=== PATIENT | male | born 1940 | race Hispanic/Latino ===

== ENCOUNTER → 2016-07-17 | Outpatient (CLI) | payer MEDICARE, OTHER | END | disposition home or self-care (01) | LOC: YCFC.O 08:47 | PROVIDERS: ATTEND Nurse Practitioner Family | DX: E11.9 Type 2 diabetes mellitus without complications (principal) ==

== ENCOUNTER 2016-08-13 15:52 | Emergency (ER) | payer MEDICARE, OTHER ==
[2016-08-13] MEDS ORDERED: IPRATROPIUM/ALBUTEROL 3 ML VIAL NEB ONE (15:56)
[2016-08-13 16:17] VITALS: TEMP 97.9
--- NOTE | 2016-08-13 16:21 | RAD ---
EXAM DESCRIPTION: Chest,1 View CLINICAL HISTORY: dyspnea COMPARISON: 14 April 2015 TECHNIQUE: AP portable chest FINDINGS: Cardiomegaly is evident. Pulmonary vascular congestion is noted. Interstitial edema is observed. Bilateral pleural effusions are observed. IMPRESSION: Findings of congestive heart failure observed. The chest is worsened from the prior exam. Electronically signed by: Anant Lewis MD 08/13/2016 4:20 PM CDT
[2016-08-13] MEDS ORDERED: NITROGLYCERIN 0.4 MG 25 EA TAB SL ONE (16:22)
--- NOTE | 2016-08-13 16:22 | ED.PDOC ---
History of Present Illness - General Chief Complaint: Respiratory Problem Stated Complaint: shortness of breath,chest pressure Time Seen by Provider: 08/13/16 15:56 Source: patient, family Exam Limitations: language barrier - History of Present Illness Initial Comments: Patient is a 76 yo M with ESRD on dialysis, last dialysis this morning, IDDM, HTN who presents with dyspnea and chest pain for two hours. Sudden onset, Pain is mid-sternal and without radiation. Pressure-like in nature. No previous episodes. No exacerbating nor alleviating factors. Denies previous episodes or cardiac history. Does not use tobacco. Has hyperlipidemia. Timing/Duration: 1-3 hours Severity: moderate Improving Factors: nothing Worsening Factors: nothing Associated Symptoms: chest pain Allergies/Adverse Reactions: Allergies NO KNOWN ALLERGY Allergy (Verified 05/10/12 08:29) pt states Home Medications: Ambulatory Orders Insulin Detemir [Levemir] 20 units SUBCU .EVENING 06/27/15 Lovastatin 20 mg PO BEDTIME 06/27/15 Sevelamer Carbonate [Renvela] 800 mg PO TID 06/27/15 Valsartan 80 mg PO DAILY 06/27/15 amLODIPine BESYLATE [Norvasc] 10 mg PO DAILY 06/27/15 Ergocalciferol [Drisdol] 50,000 unit PO WKLY 08/13/16 Review of Systems - Review of Systems Constitutional: States: no symptoms reported EENTM: States: no symptoms reported Respiratory: States: see HPI Cardiology: States: see HPI Gastrointestinal/Abdominal: States: no symptoms reported Genitourinary: States: no symptoms reported Musculoskeletal: States: no symptoms reported Skin: States: no symptoms reported Neurological: States: no symptoms reported Endocrine: States: no symptoms reported Hematologic/Lymphatic: States: no symptoms reported Past Medical History (General) - Patient Medical History Hx Hypertension: Yes Hx Diabetes: Yes Hx Renal Disease: Yes - Dialysis - Vaccination History Hx Influenza Vaccination: Yes Hx Pneumococcal Vaccination: Yes - Social History Hx Tobacco Use: Yes Family Medical History - Family History Mother Family History: No Known Physical Exam - Physical Exam General Appearance: Alert Eye Exam: bilateral normal Ears, Nose, Throat: normal ENT inspection Neck: non-tender, full range of motion, supple Respiratory: lungs clear Cardiovascular/Chest: normal peripheral pulses, regular rate, rhythm Gastrointestinal/Abdominal: normal bowel sounds, non tender, soft Back Exam: normal inspection, no CVA tenderness Extremity: normal range of motion, non-tender, normal inspection Neurologic: no motor/sensory deficits Skin Exam: normal color Lymphatic: no adenopathy Progress - Progress Progress: 08/13/16 16:23 Duonebs x one. ASA 324 mg po x one. Nitrostat tab. Oxygen by NC. 08/13/16 16:44 Pro-BNP >5000 EKG read by me showed NSR with no significant ST changes, T wave inversions, nor LBBB. Nitroglycerin drip started and titrated to keep systolic less than 160. CXR showed findings of increasing CHF. Patient was transferred to [facility]. Laboratory Tests 08/13/16 08/13/16 08/13/16 16:12 16:12 16:12 WBC 4.7 L RBC 3.54 L Hgb 11.1 L Hct 32.7 L MCV 92.3 MCH 31.3 H MCHC 34.1 RDW 17.0 H Plt Count 148 MPV 9.3 Absolute Neuts (auto) 3.40 Absolute Lymphs (auto) 0.70 L Absolute Monos (auto) 0.40 Absolute Eos (auto) 0.10 Absolute Basos (auto) 0.10 Neutrophils % 72.7 Lymphocytes % 15.6 L Monocytes % 7.8 Eosinophils % 2.8 Basophils % 1.1 PT 11.7 INR 1.040 PTT (SP) 38.2 H Sodium 143 Potassium 3.4 L Chloride 97 L Carbon Dioxide 35 H Anion Gap 14.4 BUN 17 Creatinine 3.08 H BUN/Creatinine Ratio 5.5 L Random Glucose 133 H Serum Osmolality 288.4 Calcium 10.1 Total Bilirubin 0.9 AST 15 ALT 12 Alkaline Phosphatase 108 Creatine Kinase CK-MB (CK-2) CK-MB (CK-2) % Troponin I B-Natriuretic Peptide Serum Total Protein 8.5 H Albumin 4.5 Globulin 4.0 H Albumin/Globulin Ratio 1.1 08/13/16 16:12 WBC RBC Hgb Hct MCV MCH MCHC RDW Plt Count MPV Absolute Neuts (auto) Absolute Lymphs (auto) Absolute Monos (auto) Absolute Eos (auto) Absolute Basos (auto) Neutrophils % Lymphocytes % Monocytes % Eosinophils % Basophils % PT INR PTT (SP) Sodium Potassium Chloride Carbon Dioxide Anion Gap BUN Creatinine BUN/Creatinine Ratio Random Glucose Serum Osmolality Calcium Total Bilirubin AST ALT Alkaline Phosphatase Creatine Kinase 65 CK-MB (CK-2) 1.1 CK-MB (CK-2) % Not Reportable Troponin I 0.06 H B-Natriuretic Peptide > 5000.0 H* Serum Total Protein Albumin Globulin Albumin/Globulin Ratio 08/13/16 16:47 Departure - Departure Clinical Impression: CHF (congestive heart failure), NYHA class IV Disposition: Transfer to Hospital Condition: Fair Departure Forms: ED Discharge - Pt. Copy, Patient Portal Self Enrollment Diet: other - as per hospitalist Activity: increase activity as tolerated Referrals: aHnsa Wills NP [Primary Care Provider] - 1-2 Weeks Home Medications: Ambulatory Orders Insulin Detemir [Levemir] 20 units SUBCU .EVENING 06/27/15 Lovastatin 20 mg PO BEDTIME 06/27/15 Sevelamer Carbonate [Renvela] 800 mg PO TID 06/27/15 Valsartan 80 mg PO DAILY 06/27/15 amLODIPine BESYLATE [Norvasc] 10 mg PO DAILY 06/27/15 Ergocalciferol [Drisdol] 50,000 unit PO WKLY 08/13/16
[2016-08-13] MEDS ORDERED: ASPIRIN (CHEWABLE) 81 MG TAB PO ONE (16:24)
[2016-08-13] MEDS ORDERED: ASPIRIN TABLET 325 MG TAB PO ONE (16:24)
[2016-08-13] MEDS ORDERED: NITROGLYCERIN/D5W IV 50,000 MCG in PREMIX BOTTLE 1 BOTTLE IVS SCH (16:30)
[2016-08-13] MEDS ORDERED: NITROGLYCERIN/D5W IV 250 ML IVS ONE (16:32)
[2016-08-13 17:15] VITALS: BP 157/84; O2SAT 91
== END 2016-08-13 17:19 | disposition short-term general hospital (02) ==
LOC: ER 15:52
DX: I13.2 Hypertensive heart and chronic kidney disease with heart failure and with stage 5 chronic kidney disease, or end stage renal disease (principal); I50.9 Heart failure, unspecified; N18.6 End stage renal disease; Z99.2 Dependence on renal dialysis; E11.9 Type 2 diabetes mellitus without complications; E78.5 Hyperlipidemia, unspecified; Z87.891 Personal history of nicotine dependence; Z79.4 Long term (current) use of insulin; Z79.899 Other long term (current) drug therapy
CPT/HCPCS: 36415; 36600; 71010; 80053; 82550; 82553; 82803; 82805; 83880; 84484; 85025; 85610; 85730; 93005; 94640; J7620

== ENCOUNTER → 2016-09-15 | Outpatient (CLI) | payer MEDICARE, MEDICAID ==
--- NOTE | 2016-09-16 04:55 | RAD ---
Procedure: XR CHEST 2 VIEWS Exam Date: 09/15/2016 Ordering Provider: Hansa Wills Clinical Indication: COUGH Comparison: 08/13/2016 Findings: Cardiac silhouette: Enlarged Pulmonary vasculature : Normal Mediastinal contour: Normal Aortic contour: Normal Focal lung consolidation: Left basilar atelectasis and/or infiltrate. Pleural effusion: None Pneumothorax: None Acute bony or soft tissue abnormality: None Impression: 1. Left basilar atelectasis and/or infiltrate. 2. Cardiomegaly. Electronically signed by: Ramos Rodas MD 09/16/2016 4:54 AM CDT
== END | disposition home or self-care (01) ==
LOC: YCFC.O 15:54
PROVIDERS: ATTEND Nurse Practitioner Family
DX: R05 Cough (principal)

== ENCOUNTER → 2016-10-07 | Outpatient (CLI) | payer MEDICARE, MEDICAID ==
--- NOTE | 2016-10-07 15:16 | RAD ---
EXAM DESCRIPTION: Chest,2 Views CLINICAL HISTORY: PNEUMONIA shortness of breath COMPARISON: September 15, 2016 FINDINGS: Two-view chest x-ray shows enlargement of the cardiac silhouette without pulmonary vascular congestion. Mild tortuosity the thoracic aorta is seen. Lungs are mildly hyperinflated. The interstitial thickening and infiltrate in the left lower lobe seen on previous exam is mostly resolved. There may be some residual mild interstitial thickening seen. Mild blunting of the posterior costophrenic angle on the left is seen but improved from previous. Right lung is clear. Moderate disc degenerative changes of the spine are seen. IMPRESSION: Interval significant improvement of the left lower lobe infiltrate seen on previous exam. There remains some residual mild interstitial thickening. Small left pleural effusion improved from previous. Electronically signed by: Chris Jiang MD 10/07/2016 3:15 PM CDT
== END | disposition home or self-care (01) ==
LOC: YCFC.O 09:09
PROVIDERS: ATTEND Nurse Practitioner Family
DX: J18.9 Pneumonia, unspecified organism (principal)

== ENCOUNTER → 2017-01-04 | Outpatient (CLI) | payer MEDICARE, OTHER | END | disposition home or self-care (01) | LOC: YCFC.O 09:07 | PROVIDERS: ATTEND Nurse Practitioner Family | DX: E78.2 Mixed hyperlipidemia (principal); E11.22 Type 2 diabetes mellitus with diabetic chronic kidney disease; I10 Essential (primary) hypertension; D63.1 Anemia in chronic kidney disease ==

== ENCOUNTER 2017-08-01 11:01 | Emergency (ER) | payer MEDICARE, MEDICAID ==
--- NOTE | 2017-08-01 11:59 | RAD ---
EXAM DESCRIPTION: Chest,2 Views CLINICAL HISTORY: 77 years Male, confusion COMPARISON: 04/04/2017 IMPRESSION: The heart is enlarged, with borderline central pulmonary vascular congestion. The thoracic aorta is moderately calcified and tortuous. Coarsened bilateral interstitial markings are again demonstrated, with slightly increased bibasilar patchy interstitial and airspace opacities. The findings are concerning for CHF or pneumonia superimposed on chronic interstitial changes. Suspected small left pleural effusion. No pneumothorax. Advanced multilevel thoracic spondylosis. No acute osseous abnormality. Electronically signed by: Jose Shelton MD 08/01/2017 11:57 AM CDT
[2017-08-01] MEDS: IBUPROFEN 200 MG TAB PO ONE (12:28)
--- NOTE | 2017-08-01 12:42 | CT ---
EXAM DESCRIPTION: Head CLINICAL HISTORY: Confusion. Altered mental status. COMPARISON: 06/27/2015 TECHNIQUE: Multiple axial images of the head without contrast. Multiplanar reformatted images. This exam was performed according to our departmental dose-optimization program, which includes automated exposure control, adjustment of the mA and/or kV according to patient size and/or use of iterative reconstruction technique. FINDINGS: There is no CT evidence of intracranial hemorrhage, mass effect, or large territory infarction. Severe confluent supratentorial white matter hypodensities. Moderate generalized volume loss. There are no abnormal extra-axial fluid collections. Calcific plaque in the visualized arteries. There is no acute calvarial defect. The visualized paranasal sinuses and the mastoids are clear. IMPRESSION: 1. No CT evidence of an acute intracranial abnormality. If there is concern for an acute or subacute infarct, consider follow-up MRI. 2. Advanced senescent changes. Electronically signed by: Jose Shelton MD 08/01/2017 12:40 PM CDT
--- NOTE | 2017-08-01 13:43 | ED.PDOC ---
History of Present Illness - General Chief Complaint: Neuro Symptoms/Deficits Stated Complaint: Confusion, fever Time Seen by Provider: 08/01/17 11:19 Source: patient Exam Limitations: no limitations - History of Present Illness Initial Comments: the patient is a 77-year-old male presenting to the emergency room originally with his daughter after he finished his dialysis. He was brought up here secondary to mild confusion for the last 48 hours or so. Family does not know of any definite fevers. He has not been complaining of anything. He has been having some mildly poor attention and occasionally has been getting a little bit confused. He has had a couple of small strokes in the past. He is not having any difficulty moving anything. He is not having any difficulty with speech or swallowing. There is no significant facial droop. He is alert and pleasant but does become easily confused. There does appear to be a history of maybe mild dementia before this. No recent medication changes according to family. He is oxygenating well without supplemental oxygen. He does not appear to be in any distress. He is resting comfortably. He does have alow-grade temperature elevation here of 100.1 today. He does also have mild audible rales in the left mid to lower lung field. No evidence of any sore throat or runny nose. No headache. No nuchal rigidity. No open sores that I can find. No difficulties with bowel movements or urination. No abdominal pain. He does not appear to be in any distress. His attention span is poor. Timing/Duration: 24 hours Severity: moderate Improving Factors: nothing Worsening Factors: nothing Allergies/Adverse Reactions: Allergies NO KNOWN ALLERGY Allergy (Verified 05/10/12 08:29) pt states Home Medications: Ambulatory Orders Insulin Detemir [Levemir] 20 units SUBCU .EVENING 06/27/15 Lovastatin 20 mg PO BEDTIME 06/27/15 Sevelamer Carbonate [Renvela] 800 mg PO TID 06/27/15 Valsartan 80 mg PO DAILY 06/27/15 amLODIPine BESYLATE [Norvasc] 10 mg PO DAILY 06/27/15 Ergocalciferol [Drisdol] 50,000 unit PO WKLY 08/13/16 Amoxicillin & Pot Clavulanate [Augmentin Tab] 500 mg PO DAILY #7 tablet Review of Systems - Review of Systems Constitutional: States: malaise EENTM: States: no symptoms reported Respiratory: States: cough - mild Cardiology: States: no symptoms reported Gastrointestinal/Abdominal: States: no symptoms reported Genitourinary: States: no symptoms reported Musculoskeletal: States: no symptoms reported Skin: States: no symptoms reported Neurological: States: other - mild confusion Endocrine: States: no symptoms reported All other Systems: No Change from Baseline Past Medical History (General) - Patient Medical History Hx Stroke: Yes - Hx TIA Hx Cardiac Disorders: Yes Hx Congestive Heart Failure: No Hx Hypertension: Yes Hx Diabetes: Yes Hx Renal Disease: Yes - Dialysis patient - L AV fistula to L arm; Fluid restriction - Vaccination History Hx Influenza Vaccination: No Hx Pneumococcal Vaccination: No - Social History Hx Tobacco Use: No - Triage Comment ED Triage Comment: Left AV fistula - palpable thrill noted. Family Medical History - Family History Mother Family History: No Known Living Status: Physical Exam - Physical Exam General Appearance: Alert, Comfortable, No apparent distress Eye Exam: bilateral normal - poor focus. He does have some decreased vision malleoli on his right eye from known macular degeneration Ears, Nose, Throat: hearing grossly normal - for him, normal pharynx Neck: full range of motion, supple Respiratory: no respiratory distress, no accessory muscle use, rales - left mid lung Cardiovascular/Chest: normal peripheral pulses, regular rate, rhythm, no edema Peripheral Pulses: radial,right: 2+, radial,left: 2+ - the patient's dialysis fistulas present on the left Gastrointestinal/Abdominal: non tender, soft Rectal Exam: deferred Back Exam: normal inspection, no CVA tenderness, no vertebral tenderness Extremity: normal range of motion, non-tender, normal inspection, no pedal edema , normal capillary refill Neurologic: otolaryngologist II-XII nml as tested - poor focus, alert, normal mood/affect, oriented x 3 - the patient recognizes his family and knows he is at the hospital. He knows he's been having some mild confusion. He gets the year right but is off on the date by 3 days. DTR: 2+: Patellar, left, Patellar, right Skin Exam: normal color Comments: Vital Signs - 24 hr 08/01/17 08/01/17 11:05 13:03 Temperature 98.8 F Pulse Rate [ 77 71 Left Radial] Respiratory 20 18 Rate Blood Pressure 168/87 183/78 [Left Arm] O2 Sat by Pulse 100 95 Oximetry Progress - Progress Progress: 08/01/17 13:47 the patient's a 77-year-old male that is a long-term dialysis patient presenting secondary to mild confusion for the last couple of days and really no other symptoms. Workup including blood work and urinalysis along with chest x-ray really only turned up a mild pneumonia. CT scan of the head showed no definitive new changes. It is possible he may have had a small stroke a couple of days ago giving him some confusion, however this has not shown up conclusively on the CT scan. he can continue his aspirin. For now the patient will be treated with Augmentin daily for the next 7 days for the pneumonia. Tylenol can be used to control any low-grade fever. His maximum temperature here was just above 100 and he is not requiring any supplemental oxygen. He needs to be kept adequately hydrated and he does need to keep his scheduled dialysis appointment. He needs to follow-up with his primary care doctor after his dialysis on Tuesday for reevaluation. He does have some elevation of his troponin and BNP on his lab work, however this is a chronic finding looking back at his previous workups. No cardiac symptoms are present currently. - Results/Orders Results/Orders: chest x-ray shows interstitial infiltrates consistent with pneumonia. EKG shows normal sinus rhythm at a rate of 69 bpm. Mildly prolonged QT interval. No acute ST segment changes concerning for immediate ischemia. He does have criteria for LVH and left atrial dilation. Laboratory Results - last 24 hr 08/01/17 08/01/17 08/01/17 11:29 11:29 11:30 WBC 6.8 RBC 3.17 L Hgb 10.6 L Hct 30.5 L MCV 96.3 H MCH 33.4 H MCHC 34.7 RDW 17.8 H Plt Count 137 MPV 9.5 Absolute Neuts (auto) 5.50 Absolute Lymphs (auto) 0.40 L Absolute Monos (auto) 0.80 Absolute Eos (auto) 0.10 Absolute Basos (auto) 0.00 Neutrophils % 81.3 H Lymphocytes % 6.1 L Monocytes % 11.2 H Eosinophils % 1.1 Basophils % 0.3 PT 12.2 INR 1.050 PTT (SP) 39.4 H Sodium Potassium Chloride Carbon Dioxide Anion Gap BUN Creatinine BUN/Creatinine Ratio Random Glucose Serum Osmolality Calcium Phosphorus 2.0 L Magnesium Total Bilirubin AST ALT Alkaline Phosphatase Creatine Kinase CK-MB (CK-2) CK-MB (CK-2) % Troponin I B-Natriuretic Peptide Serum Total Protein Albumin Globulin Albumin/Globulin Ratio Total PSA Urine Color Urine Appearance Urine pH Ur Specific [place] Urine Protein Urine Glucose (UA) Urine Ketones Urine Blood Urine Nitrite Urine Bilirubin Urine Urobilinogen Ur Leukocyte Esterase Urine RBC Urine WBC Ur Epithelial Cells Urine Bacteria 08/01/17 08/01/17 08/01/17 11:30 12:12 13:00 WBC RBC Hgb Hct MCV MCH MCHC RDW Plt Count MPV Absolute Neuts (auto) Absolute Lymphs (auto) Absolute Monos (auto) Absolute Eos (auto) Absolute Basos (auto) Neutrophils % Lymphocytes % Monocytes % Eosinophils % Basophils % PT INR PTT (SP) Sodium 145 Potassium 3.3 L Chloride 98 L Carbon Dioxide 36 H Anion Gap 14.3 BUN 13 Creatinine 3.23 H BUN/Creatinine Ratio 4.0 L Random Glucose 102 Serum Osmolality 289.0 Calcium 9.4 Phosphorus Magnesium 2.1 Total Bilirubin 1.0 AST 15 ALT 12 Alkaline Phosphatase 103 Creatine Kinase 54 CK-MB (CK-2) 0.9 CK-MB (CK-2) % Not Reportable Troponin I 0.09 H* B-Natriuretic Peptide > 5000.0 H* Serum Total Protein 7.5 Albumin 3.7 Globulin 3.8 H Albumin/Globulin Ratio 1.0 L Total PSA 1.67 Urine Color Yellow Urine Appearance Clear Urine pH >= 9.0 H* Ur Specific [place] 1.015 Urine Protein >=300 H Urine Glucose (UA) 100 H Urine Ketones Negative Urine Blood Trace-intact H Urine Nitrite Negative Urine Bilirubin Negative Urine Urobilinogen 0.2 Ur Leukocyte Esterase Negative Urine RBC 0 Urine WBC 0-1 Ur Epithelial Cells 0-1 Urine Bacteria 0 Departure - Departure Clinical Impression: Pneumonia Qualifiers: Pneumonia type: due to unspecified organism Laterality: unspecified laterality Lung location: lower lobe of lung Qualified Code(s): J18.1 - Lobar pneumonia, unspecified organism Disposition: Discharge to Home or Self Care Condition: Fair Departure Forms: ED Discharge - Pt. Copy, Patient Portal Self Enrollment Instructions: Pneumonia-Adult Diet: diabetic diet Activity: increase activity as tolerated Referrals: Lorena Trevino NP [Primary Care Provider] - 1-2 Weeks Prescriptions: Amoxicillin & Pot Clavulanate [Augmentin Tab] 500 mg PO DAILY #7 tablet Home Medications: Ambulatory Orders Insulin Detemir [Levemir] 20 units SUBCU .EVENING 06/27/15 Lovastatin 20 mg PO BEDTIME 06/27/15 Sevelamer Carbonate [Renvela] 800 mg PO TID 06/27/15 Valsartan 80 mg PO DAILY 06/27/15 amLODIPine BESYLATE [Norvasc] 10 mg PO DAILY 06/27/15 Ergocalciferol [Drisdol] 50,000 unit PO WKLY 08/13/16 Amoxicillin & Pot Clavulanate [Augmentin Tab] 500 mg PO DAILY #7 tablet Additional Instructions: the patient's a 77-year-old male that is a long-term dialysis patient presenting secondary to mild confusion for the last couple of days and really no other symptoms. Workup including blood work and urinalysis along with chest x-ray really only turned up a mild pneumonia. CT scan of the head showed no definitive new changes. It is possible he may have had a small stroke a couple of days ago giving him some confusion, however this has not shown up conclusively on the CT scan. he can continue his aspirin. For now the patient will be treated with Augmentin daily for the next 7 days for the pneumonia. Tylenol can be used to control any low-grade fever. His maximum temperature here was just above 100 and he is not requiring any supplemental oxygen. He needs to be kept adequately hydrated and he does need to keep his scheduled dialysis appointment. He needs to follow-up with his primary care doctor after his dialysis on Tuesday for reevaluation. He does have some elevation of his troponin and BNP on his lab work, however this is a chronic finding looking back at his previous workups. No cardiac symptoms are present currently. blood sugars should also be followed fairly closely at home to make sure he is not developing any low blood sugars with the infection on board.
[2017-08-01] MEDS: POTASSIUM CHLORIDE ELIXIR 20 MEQ/15 ML UD PO ONE (14:29)
[2017-08-01] MEDS ORDERED: cefTRIAXone SODIUM 1 GM VIAL ONE (14:31)
[2017-08-01] MEDS ORDERED: SODIUM CHL 0.9% 50ML MIN-BAG+ 50 ML IVPB ONE (14:31)
[2017-08-01] MEDS: cefTRIAXone SODIUM 1 GM in SODIUM CHL 0.9% 50ML MIN-BAG+ 50 ML IVPB ONE (14:38)
[2017-08-01] MEDS: AMOXICILLIN & POT CLAVULANATE 500MG TAB PO ONE (15:20)
[2017-08-01 16:09] VITALS: BP 177/77; TEMP 98.6; O2SAT 95
== END 2017-08-01 16:00 | disposition home or self-care (01) ==
LOC: ER 11:01
DX: J18.1 Lobar pneumonia, unspecified organism (principal); I12.0 Hypertensive chronic kidney disease with stage 5 chronic kidney disease or end stage renal disease; E11.22 Type 2 diabetes mellitus with diabetic chronic kidney disease; N18.6 End stage renal disease; Z99.2 Dependence on renal dialysis; Z79.4 Long term (current) use of insulin; Z86.73 Personal history of transient ischemic attack (TIA), and cerebral infarction without residual deficits
CPT/HCPCS: 36415; 70450; 71046; 80053; 81001; 82550; 82553; 83735; 83880; 84100; 84484; 85025; 85610; 85730; 93005; G0103; J0696; J7050

== ENCOUNTER 2017-08-08 00:58 | Emergency (ER) | payer MEDICARE, MEDICAID ==
--- NOTE | 2017-08-08 01:18 | ED.PDOC ---
History of Present Illness - General Chief Complaint: Respiratory Problem Stated Complaint: shortness of breath Time Seen by Provider: 08/08/17 01:14 Source: patient Exam Limitations: no limitations - History of Present Illness Initial Comments: Otilio Cabrera 77 y/o male patient brought by family after he woke up from his sleep with SOB ,no chest pains.Has ESRD-on hemodialysis-M/W/F.Had Sp02 88 %/ EMS.Daughter stated that he had been drinking water a lot recently. Timing/Duration: 1-3 hours Severity: moderate Improving Factors: nothing Worsening Factors: other - see hpi Associated Symptoms: denies symptoms Allergies/Adverse Reactions: Allergies NO KNOWN ALLERGY Allergy (Verified 08/08/17 01:15) pt states Home Medications: Ambulatory Orders Insulin Detemir [Levemir] 20 units SUBCU .EVENING 06/27/15 Lovastatin 20 mg PO BEDTIME 06/27/15 Valsartan 80 mg PO DAILY 06/27/15 amLODIPine BESYLATE [Norvasc] 10 mg PO DAILY 06/27/15 Ergocalciferol [Drisdol] 50,000 unit PO WKLY 08/13/16 Amoxicillin & Pot Clavulanate [Augmentin Tab] 500 mg PO DAILY #7 tablet Ticagrelor [Brilinta] 90 mg PO BID 08/01/17 Aspirin [Aspirin Adult Low Dose] 81 mg PO DAILY 08/08/17 Carvedilol [Coreg] 12.5 mg PO BID 08/08/17 Review of Systems - Review of Systems Constitutional: States: no symptoms reported EENTM: States: no symptoms reported Respiratory: States: see HPI Cardiology: States: no symptoms reported Gastrointestinal/Abdominal: States: no symptoms reported Genitourinary: States: see HPI All other Systems: Reviewed and Negative, No Change from Baseline Past Medical History (General) - Patient Medical History Hx Seizures: No Hx Stroke: Yes - Hx TIA Hx Dementia: No Hx Asthma: No Hx of COPD: No Hx Cardiac Disorders: Yes Hx Congestive Heart Failure: No Hx Pacemaker: No Hx Hypertension: Yes Hx Thyroid Disease: No Hx Diabetes: Yes Hx Gastroesophageal Reflux: No Hx Renal Disease: Yes - Dialysis patient - L AV fistula to L arm; Fluid restriction Hx Cancer: No Hx of HIV: No Hx Hepatitis C: No Hx MRSA: No Surgical History: other - PTCA - Vaccination History Hx Influenza Vaccination: Yes Hx Pneumococcal Vaccination: Yes - Social History Hx Tobacco Use: No Hx Alcohol Use: No Hx Physical Abuse: No Hx Emotional Abuse: No - Activities of Daily Living Grooming Ability: Independent Eating (Feeding) Ability: Independent Toileting Ability: Independent Family Medical History - Family History Mother Family History: Unknown Living Status: Physical Exam - Physical Exam General Appearance: Alert, Comfortable, No apparent distress Ears, Nose, Throat: hearing grossly normal, normal ENT inspection, normal pharynx Neck: non-tender, full range of motion, supple Respiratory: chest non-tender, lungs clear, no respiratory distress, decreased breath sounds Cardiovascular/Chest: regular rate, rhythm, no gallop, no murmur Gastrointestinal/Abdominal: normal bowel sounds, non tender, soft Extremity: no pedal edema, no calf tenderness Neurologic: alert, oriented x 3 Progress - Progress Progress: 08/08/17 02:46 Vital Signs - 8 hr 08/08/17 08/08/17 08/08/17 01:00 01:09 01:51 Temperature 97.5 F L Pulse Rate [ 75 68 monitor] Respiratory 24 24 20 Rate Blood Pressure 151/101 195/83 [Left Arm] O2 Sat by Pulse 98 95 Oximetry 08/08/17 02:02 Temperature Pulse Rate [ 66 monitor] Respiratory 20 Rate Blood Pressure 185/82 [Left Arm] O2 Sat by Pulse 97 Oximetry - Results/Orders Results/Orders: 08/08/17 01:16 IV Care:Saline Lock per Protoc QSHIFT Chest,1 View [RAD] Stat 08/08/17 01:17 EKG Assessment ONCE 08/08/17 01:30 CARDIAC PANEL,ER Stat HEPATIC FUNCTION PANEL Stat EKG STAT EKG STAT Laboratory Results - last 24 hr 08/08/17 08/08/17 01:30 01:30 WBC 9.5 RBC 2.88 L Hgb 9.8 L Hct 28.1 L MCV 97.4 H MCH 34.0 H MCHC 34.9 RDW 18.0 H Plt Count 188 MPV 8.0 Absolute Neuts (auto) 7.60 H Absolute Lymphs (auto) 0.80 L Absolute Monos (auto) 0.60 Absolute Eos (auto) 0.40 Absolute Basos (auto) 0.00 Neutrophils % 80.2 H Lymphocytes % 8.2 L Monocytes % 6.7 Eosinophils % 4.5 Basophils % 0.4 PT 12.1 INR 1.040 PTT (SP) 35.0 Sodium 142 Potassium 3.3 L Chloride 98 L Carbon Dioxide 33 H Anion Gap 14.3 BUN 37 H Creatinine 7.51 H* BUN/Creatinine Ratio 4.9 L Random Glucose 86 Serum Osmolality 291.1 Calcium 9.2 Magnesium 2.4 Total Bilirubin 0.9 Direct Bilirubin 0.1 Indirect Bilirubin 0.8 AST 18 ALT 9 L Alkaline Phosphatase 93 Creatine Kinase 46 CK-MB (CK-2) 0.8 Troponin I 0.06 H B-Natriuretic Peptide > 5000.0 H* Serum Total Protein 7.4 Albumin 3.8 Globulin Cancelled Albumin/Globulin Ratio Cancelled Patient has slight elevation of troponin-0.06 and bnp>5000 which isfrom hi ESRD; Has scheduled dialysis at 7 am today 08 Aug 2017 - EKG/XRAY/CT EKG: Sinus, nonspecific ST T wave Chg Comments: HR-74 XRAY: chest - interstitial edema/chf changes -per radiologist Departure - Departure Clinical Impression: 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 Copy, Patient Portal Self Enrollment Referrals: Lorena Trevino, [employer] [Primary Care Provider] - 1-2 Weeks Home Medications: Ambulatory Orders Insulin Detemir [Levemir] 20 units SUBCU .EVENING 06/27/15 Lovastatin 20 mg PO BEDTIME 06/27/15 Valsartan 80 mg PO DAILY 06/27/15 amLODIPine BESYLATE [Norvasc] 10 mg PO DAILY 06/27/15 Ergocalciferol [Drisdol] 50,000 unit PO WKLY 08/13/16 Amoxicillin & Pot Clavulanate [Augmentin Tab] 500 mg PO DAILY #7 tablet Ticagrelor [Brilinta] 90 mg PO BID 08/01/17 Aspirin [Aspirin Adult Low Dose] 81 mg PO DAILY 08/08/17 Carvedilol [Coreg] 12.5 mg PO BID 05/14/18 Additional Instructions: Keep dialysis appointment today at 7 AM;Return to ER as needed;Elevate head of bed 45 degrees when asleep
--- NOTE | 2017-08-08 01:40 | RAD ---
Chest single view on 08/08/2017 CLINICAL INDICATION: Shortness of breath COMPARISON: 08/01/2017 FINDINGS: Cardiomegaly is noted. There are small bilateral pleural effusions. There are worsening bilateral interstitial opacities consistent with edema. Bilateral lower lung opacities likely representing edema and/or atelectasis. Cannot exclude component of basilar pneumonia. IMPRESSION: Findings likely all related to changes of CHF although cannot exclude component of basilar atelectasis and/or pneumonia. Electronically signed by: Yuval Espinosa 08/08/2017 1:39 AM CDT
[2017-08-08] MEDS ORDERED: cloNIDine HCL 0.1 MG TAB PO ONE (02:30)
[2017-08-08 02:41] VITALS: TEMP 97.5
[2017-08-08 03:12] VITALS: BP 181/78; O2SAT 98
== END 2017-08-08 03:12 | disposition home or self-care (01) ==
LOC: ER 00:58
DX: I13.2 Hypertensive heart and chronic kidney disease with heart failure and with stage 5 chronic kidney disease, or end stage renal disease (principal); E11.22 Type 2 diabetes mellitus with diabetic chronic kidney disease; E11.21 Type 2 diabetes mellitus with diabetic nephropathy; N18.6 End stage renal disease; I50.9 Heart failure, unspecified; D63.1 Anemia in chronic kidney disease; Z99.2 Dependence on renal dialysis; Z86.73 Personal history of transient ischemic attack (TIA), and cerebral infarction without residual deficits; Z79.4 Long term (current) use of insulin; Z79.82 Long term (current) use of aspirin

== ENCOUNTER 2018-03-23 16:45 | Emergency (ER) | payer MEDICARE, MEDICAID ==
[2018-03-23] MEDS ORDERED: IPRATROPIUM/ALBUTEROL 3 ML VIAL NEB ONE (16:54)
--- NOTE | 2018-03-23 17:01 | ED.PDOC ---
History of Present Illness - General Chief Complaint: Respiratory Problem Stated Complaint: Difficulty breathing Time Seen by Provider: 03/23/18 16:52 Source: patient, family Exam Limitations: no limitations - History of Present Illness Initial Comments: Patient presents with mild dyspnea since yesterday. He also feels flim in his throat. He denies any pain. He has IDDM and Stage 5 CRF on dialysis with the last dialysis being yesterday and the next scheduled one being tomorrow. He also says that his stomach was normal two days ago but today feels bloated. No N/V/D. No other complaints. Hx of CHF but no AMI. Timing/Duration: 24 hours Severity: mild Improving Factors: nothing Worsening Factors: nothing Associated Symptoms: denies symptoms Allergies/Adverse Reactions: Allergies NO KNOWN ALLERGY Allergy (Verified 03/23/18 16:50) pt states Home Medications: Ambulatory Orders Insulin Detemir [Levemir] 20 units SUBCU .EVENING 06/27/15 Lovastatin 20 mg PO BEDTIME 06/27/15 Valsartan 80 mg PO DAILY 06/27/15 amLODIPine BESYLATE [Norvasc] 10 mg PO DAILY 06/27/15 Ergocalciferol [Drisdol] 50,000 unit PO WKLY 08/13/16 Amoxicillin & Pot Clavulanate [Augmentin Tab] 500 mg PO DAILY #7 tablet 08/01/17 Ticagrelor [Brilinta] 90 mg PO BID 08/01/17 Aspirin [Aspirin Adult Low Dose] 81 mg PO DAILY 08/08/17 Carvedilol [Coreg] 12.5 mg PO BID 08/08/17 Review of Systems - Review of Systems Constitutional: States: no symptoms reported EENTM: States: no symptoms reported Respiratory: States: see HPI Cardiology: States: no symptoms reported Gastrointestinal/Abdominal: States: no symptoms reported Genitourinary: States: see HPI Musculoskeletal: States: no symptoms reported Skin: States: no symptoms reported Neurological: States: no symptoms reported Endocrine: States: no symptoms reported Hematologic/Lymphatic: States: no symptoms reported Past Medical History (General) - Patient Medical History Hx Seizures: No Hx Stroke: Yes - Hx TIA Hx Dementia: No Hx Asthma: No Hx of COPD: No Hx Cardiac Disorders: No Hx Congestive Heart Failure: Yes Hx Pacemaker: No Hx Hypertension: Yes Hx Thyroid Disease: No Hx Diabetes: Yes Hx Gastroesophageal Reflux: No Hx Renal Disease: Yes - Dialysis patient - L AV fistula to L arm; Fluid restriction Hx Cancer: No Hx of HIV: No Hx Hepatitis C: No Hx MRSA: No Surgical History: other - Vaccination History Hx Influenza Vaccination: Yes - 2018 Hx Pneumococcal Vaccination: Yes - Social History Hx Tobacco Use: Yes - Quit 30 yrs ago Hx Alcohol Use: No Hx Physical Abuse: No Hx Emotional Abuse: No Family Medical History - Family History Mother Family History: Unknown Living Status: Physical Exam - Physical Exam General Appearance: Alert Eye Exam: bilateral normal Ears, Nose, Throat: normal ENT inspection Neck: non-tender, full range of motion, supple Respiratory: lungs clear, normal breath sounds Cardiovascular/Chest: normal peripheral pulses, regular rate, rhythm, no edema Gastrointestinal/Abdominal: normal bowel sounds, non tender, distended - Moderately distended bowel Back Exam: normal inspection, no CVA tenderness Neurologic: no motor/sensory deficits, alert, normal mood/affect Skin Exam: normal color Lymphatic: no adenopathy Progress - Progress Progress: 03/23/18 18:20 Laboratory Tests 03/23/18 03/23/18 03/23/18 17:05 17:05 17:05 WBC 5.8 RBC 3.23 L Hgb 10.3 L Hct 30.8 L MCV 95.4 H MCH 31.8 H MCHC 33.6 RDW 16.5 H Plt Count 159 MPV 8.4 Absolute Neuts (auto) 4.60 Absolute Lymphs (auto) 0.60 L Absolute Monos (auto) 0.50 Absolute Eos (auto) 0.10 Absolute Basos (auto) 0.00 Neutrophils % 78.8 H Lymphocytes % 9.9 L Monocytes % 8.6 Eosinophils % 2.1 Basophils % 0.6 PT INR PTT (SP) Sodium 138 Potassium 4.1 Chloride 95 L Carbon Dioxide 31 Anion Gap 16.1 BUN 29 H Creatinine 5.81 H BUN/Creatinine Ratio 5.0 L Random Glucose 173 H Serum Osmolality 285.6 Calcium 9.3 Total Bilirubin 1.0 AST 18 ALT 12 Alkaline Phosphatase 140 H Creatine Kinase 52 CK-MB (CK-2) 0.7 Troponin I 0.05 B-Natriuretic Peptide > 5000.0 H* Serum Total Protein 7.6 Albumin 3.8 Globulin 3.8 H Albumin/Globulin Ratio 1.0 L 12/27/18 17:05 WBC RBC Hgb Hct MCV MCH MCHC RDW Plt Count MPV Absolute Neuts (auto) Absolute Lymphs (auto) Absolute Monos (auto) Absolute Eos (auto) Absolute Basos (auto) Neutrophils % Lymphocytes % Monocytes % Eosinophils % Basophils % PT 10.7 INR 1.07 PTT (SP) 25.2 Sodium Potassium Chloride Carbon Dioxide Anion Gap BUN Creatinine BUN/Creatinine Ratio Random Glucose Serum Osmolality Calcium Total Bilirubin AST ALT Alkaline Phosphatase Creatine Kinase CK-MB (CK-2) Troponin I B-Natriuretic Peptide Serum Total Protein Albumin Globulin Albumin/Globulin Ratio BNP > 5000.. bp 182/101. Patient was given Lasix 100 mg IV x one but this is not expected to resolve his dyspnea since he makes such a small amount of urine. He was started on a nitroglycerine drip and titrated to a systolic less than 140. Transferred to [facility] [place] for likely emergent dialysis. Departure - Departure Clinical Impression: CHF (congestive heart failure), Stage 5 chronic kidney disease on dialysis Disposition: Transfer to Hospital Condition: Fair Departure Forms: ED Discharge - Pt. Copy, Patient Portal Self Enrollment Diet: other - NPO Activity: increase activity as tolerated Referrals: Lorena Trevino, [employer] [Primary Care Provider] - 1-2 Weeks Home Medications: Ambulatory Orders Insulin Detemir [Levemir] 20 units SUBCU .EVENING 06/27/15 Lovastatin 20 mg PO BEDTIME 06/27/15 Valsartan 80 mg PO DAILY 06/27/15 amLODIPine BESYLATE [Norvasc] 10 mg PO DAILY 06/27/15 Ergocalciferol [Drisdol] 50,000 unit PO WKLY 08/13/16 Amoxicillin & Pot Clavulanate [Augmentin Tab] 500 mg PO DAILY #7 tablet 08/01/17 Ticagrelor [Brilinta] 90 mg PO BID 08/01/17 Aspirin [Aspirin Adult Low Dose] 81 mg PO DAILY 08/08/17 Carvedilol [Coreg] 12.5 mg PO BID 08/08/17
--- NOTE | 2018-03-23 17:36 | RAD ---
EXAM DESCRIPTION: Chest,1 View CLINICAL HISTORY: 77 years Male, dyspnea COMPARISON: August 08, 2017 TECHNIQUE: AP portable chest. FINDINGS: Cardiomegaly with moderate changes of central vascular congestion with either infiltrate or edema at the right lung base and a chronically elevated left hemidiaphragm is present. Changes consistent with early volume overload and pulmonary vascular congestion and edema is present but if anything the appearance is improved from prior remote study August 08, 2017. IMPRESSION: Cardiomegaly and central vascular congestion with interstitial edema and developing infiltrate or alveolar edema right lung base. This pattern however is actually improved from remote August 08, 2017 study. Electronically signed by: Jb Casarez MD 03/23/2018 5:35 PM VERSE WRITER
[2018-03-23] MEDS ORDERED: FUROSEMIDE INJ 100 MG/10 ML VIAL IV ONE (17:41)
[2018-03-23] MEDS ORDERED: NITROGLYCERIN/D5W IV 50,000 MCG in PREMIX BOTTLE 1 BOTTLE IVS SCH (18:00)
[2018-03-23] MEDS ORDERED: NITROGLYCERIN/D5W IV 250 ML IVS ONE (18:11)
[2018-03-23 19:42] VITALS: BP 167/79; TEMP 100.4; O2SAT 91
== END 2018-03-23 19:41 | disposition short-term general hospital (02) ==
LOC: ER 16:45
DX: I50.9 Heart failure, unspecified (principal); E11.22 Type 2 diabetes mellitus with diabetic chronic kidney disease; I13.2 Hypertensive heart and chronic kidney disease with heart failure and with stage 5 chronic kidney disease, or end stage renal disease; N18.5 Chronic kidney disease, stage 5; Z99.2 Dependence on renal dialysis; Z87.891 Personal history of nicotine dependence; Z79.82 Long term (current) use of aspirin; Z79.899 Other long term (current) drug therapy; Z86.73 Personal history of transient ischemic attack (TIA), and cerebral infarction without residual deficits; Z79.4 Long term (current) use of insulin
CPT/HCPCS: 36415; 71045; 80053; 82550; 82553; 83880; 84484; 85025; 85610; 85730; 93005; 94640; J1940; J7620

== ENCOUNTER → 2018-04-13 | Outpatient (CLI) | payer MEDICARE, MEDICAID | LOC: LAB.O 07:19 | PROVIDERS: ATTEND Family Medicine | DX: Z00.01 Encounter for general adult medical examination with abnormal findings (principal); E13.3 Other specified diabetes mellitus with ophthalmic complications; I10 Essential (primary) hypertension; D64.9 Anemia, unspecified; E78.5 Hyperlipidemia, unspecified; R53.83 Other fatigue ==

== ENCOUNTER → 2018-05-04 | Outpatient (CLI) | payer MEDICARE, MEDICAID | LOC: YCFC.O 09:33 | PROVIDERS: ATTEND Family Medicine | DX: D64.9 Anemia, unspecified (principal) ==

== ENCOUNTER → 2018-06-28 | Outpatient (CLI) | payer MEDICARE, MEDICAID ==
--- NOTE | 2018-06-28 16:02 | MRI ---
EXAM DESCRIPTION: Brain w/o Contrast: MRI. CLINICAL HISTORY: Headache. COMPARISON: CT scan of the head 08/01/2017. TECHNIQUE: Multiplanar, high-field MRI unit, multiple diffusion sequences, multiple conventional sequences without contrast. FINDINGS: Confluent hyperintense FLAIR and T2-weighted signal in the periventricular white matter ornelas radiata and bilateral centrum semiovale. Bilateral small focal hyperintense T2 and STIR signal in the Olson-white matter junctions of the cerebral hemispheres. Relatively symmetric. . No hemorrhage, no cerebral edema, no mass-effect. No diffusion restriction. Also small hyperintense foci of FLAIR signal in the bilateral basal ganglia. Normal signal in the brainstem and cerebellar hemispheres. No hemorrhage, no cerebral edema, no mass-effect. No diffusion restriction. Concordance of the diffusion and non-diffusion sequences with no diffusion restriction. Cortical sulci, and other CSF spaces, and the subdural spaces are normally configured for patients age. No effacement or displacement. 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 No midline shift. No extra-axial hemorrhage. Flow signal void unremarkable in the major vessels of the platinum Haas, and the venous sinuses. Question of focal ectasia versus small aneurysm distal right intracranial ICA proximal to the bifurcation to the MCA and SHERLEY and a large right posterior communicating artery. IACs are symmetric bilaterally. No fluid in the bilateral mastoid air cells. No mass effect in the bilateral cerebellopontine angles. Pituitary gland occupies most of the sella. Base of the cerebellar tonsils is at the level of the foramen magnum. Decompressed with thickening in some of the. The bony calvarium is intact. IMPRESSION: 1. Bilateral periventricular white matter signal changes and also symmetric signal changes in the bilateral centrum semiovale and subcortical white matter. Most likely related to age and/or cerebral microvascular disease. No hemorrhage, no mass effect, no midline shift. 2. No diffusion restriction which would indicate significant acute or subacute infarction or ischemia. 3. 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 4. Question of enlarged distal right ICA in the intracranial in region in the vicinity of the origin of the right posterior communicating artery and bifurcation. Consider follow-up CTA of the brain. Electronically signed by: Chip Guzman MD 06/28/2018 3:59 PM CDT
== END ==
LOC: MRI 11:21
PROVIDERS: ATTEND Family Medicine
DX: R51 Headache (principal); R42 Dizziness and giddiness; R00.1 Bradycardia, unspecified

== ENCOUNTER 2018-07-14 06:34 | Emergency (ER) | payer MEDICARE, MEDICAID ==
[2018-07-14] MEDS ORDERED: SODIUM CHLORIDE 0.9% (FLUSH) 10 ML SYG IV PRN (06:43)
[2018-07-14] MEDS ORDERED: IPRATROPIUM/ALBUTEROL 3 ML VIAL NEB ONE (07:00)
[2018-07-14 07:06] VITALS: TEMP 98
[2018-07-14] MEDS ORDERED: CARVEDILOL 12.5 MG TAB PO ONE ×2 (07:56→09:34)
--- NOTE | 2018-07-14 08:02 | RAD ---
EXAM DESCRIPTION: Chest,1 View CLINICAL HISTORY: 78 years Male irregular hear rates, PVc, bigeminy COMPARISON: 03/23/2018 TECHNIQUE: Portable AP view of the chest is obtained. Heart: Allowing for magnification factors related to AP portable technique and body habitus , the heart is mildly enlarged Vasculature: [] There is no evidence of aortic aneurysm or acute findings. The pulmonary vascularity is normal. Mediastinum: Unremarkable otherwise. No evidence of mass or adenopathy. Lungs: There is mild diffuse and unchanged interstitial prominence, probably minimal fibrosis. There is no focal consolidation in the lungs. There is unchanged elevation of the left hemidiaphragm (with minimal adjacent compressive atelectasis) which may be congenital or indicate phrenic nerve injury or palsy. Pleura: There are no pleural effusions. There are no pneumothoraces. Osseous structures: There is no evidence of acute fracture, osseous destruction or osteoblastic lesions. Tubes and catheters: None Upper abdomen: No acute findings. Chest wall: Unremarkable. IMPRESSION: Mild cardiomegaly without gross congestive heart failure. No evidence of acute consolidative pneumonia. Remainder of findings as described above. Electronically signed by: Kristine Zuñiga MD 07/14/2018 7:58 AM CDT
--- NOTE | 2018-07-14 09:36 | ED.PDOC ---
History of Present Illness - General Chief Complaint: Cardiovascular Problem Stated Complaint: irregular heart rate Time Seen by Provider: 07/14/18 07:00 Source: patient, family Exam Limitations: no limitations - History of Present Illness Initial Comments: the patient is a 78-year-old male presenting to emergency room secondary to being sent over from the dialysis center due to an irregular heart rate ranging from 35-50. The patient is asymptomatic. No chest pain, shortness of breath, weakness or dizziness. No altered mental status. He does have a history of hypertension. Blood pressures are in the 140s to 160s. Again he is asymptomatic. Telemetry monitoring shows the patient is in bigeminy most of the time. His ventricular beats do not appear to be generating much of a pulse however. His functional pulse rate is in the 30s to 40s.he has not taken his morning medications as he normally takes them after dialysis. Timing/Duration: unsure Severity: mild Improving Factors: nothing Worsening Factors: nothing Associated Symptoms: denies symptoms Allergies/Adverse Reactions: Allergies NO KNOWN ALLERGY Allergy (Verified 07/14/18 06:43) pt states Home Medications: Ambulatory Orders Lovastatin 20 mg PO BEDTIME 06/27/15 amLODIPine BESYLATE [Norvasc] 10 mg PO DAILY 06/27/15 Ticagrelor [Brilinta] 90 mg PO BID 08/01/17 Carvedilol [Coreg] 12.5 mg PO BID 08/08/17 Albuterol Inhaler [Ventolin Hfa Inhaler] 1 puff INH QID PRN 07/14/18 Amoxicillin 875 mg PO DAILY 07/14/18 Carvedilol [Coreg] 25 mg PO BID #60 tab 07/14/18 Losartan Potassium 50 mg PO DAILY 07/14/18 Sevelamer Carbonate [Renvela] 800 mg PO TID 07/14/18 Review of Systems - Review of Systems Constitutional: States: no symptoms reported EENTM: States: no symptoms reported Respiratory: States: no symptoms reported Cardiology: States: no symptoms reported Gastrointestinal/Abdominal: States: no symptoms reported Genitourinary: States: no symptoms reported Musculoskeletal: States: no symptoms reported Skin: States: no symptoms reported Neurological: States: no symptoms reported Endocrine: States: no symptoms reported All other Systems: No Change from Baseline Past Medical History (General) - Patient Medical History Hx Seizures: No Hx Stroke: Yes - Hx TIA Hx Dementia: No Hx Asthma: No Hx of COPD: No Hx Cardiac Disorders: No Hx Congestive Heart Failure: Yes Hx Pacemaker: No Hx Hypertension: Yes Hx Thyroid Disease: No Hx Diabetes: Yes Hx Gastroesophageal Reflux: No Hx Renal Disease: Yes - Dialysis patient - L AV fistula to L arm; Fluid restriction Hx Cancer: No Hx of HIV: No Hx Hepatitis C: No Hx MRSA: No - Vaccination History Hx Tetanus, Diphtheria Vaccination: No Hx Influenza Vaccination: Yes Hx Pneumococcal Vaccination: Yes - Social History Hx Tobacco Use: No Hx Alcohol Use: No Hx Physical Abuse: No Hx Emotional Abuse: No Family Medical History - Family History Mother Family History: Unknown Living Status: Physical Exam - Physical Exam General Appearance: Alert, Comfortable, No apparent distress Eye Exam: bilateral normal Ears, Nose, Throat: normal ENT inspection, normal pharynx Neck: full range of motion, supple Respiratory: lungs clear, normal breath sounds, no respiratory distress, no accessory muscle use Cardiovascular/Chest: normal peripheral pulses, no edema, irregularly irregular Peripheral Pulses: radial,right: 2+, radial,left: 2+ Gastrointestinal/Abdominal: non tender, soft Rectal Exam: deferred Back Exam: no CVA tenderness, no vertebral tenderness Extremity: non-tender, normal inspection, no pedal edema 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, alert, normal mood/affect, oriented x 3 Skin Exam: normal color Comments: Vital Signs - 24 hr 07/14/18 07/14/18 07/14/18 06:44 06:47 07:36 Temperature 98.0 F Pulse Rate 42 L 66 Pulse Rate [ 42 L Apical] Pulse Rate [ 42 L left] Respiratory 18 14 Rate Blood Pressure 156/97 [left] O2 Sat by Pulse 98 95 96 Oximetry 07/14/18 07/14/18 07/14/18 08:12 08:30 09:00 Temperature Pulse Rate Pulse Rate [ 66 64 64 Apical] Pulse Rate [ left] Respiratory 20 16 16 Rate Blood Pressure 146/62 159/55 159/71 [left] O2 Sat by Pulse 99 97 97 Oximetry Progress - Progress Progress: 07/14/18 09:37 the patient is a 78-year-old male presenting to the emergency room with asymptomatic bigeminy. Pattern did improve after dosing of his Coreg. His accounting office manager was contacted and recommended an increase in his Coreg to 25 mg twice daily from the 12.5 mg twice daily. He does need follow-up with his accounting office manager next week. He will need to get dialysis this afternoon or tomorrow. ER warnings were given. Laboratory work and x-ray are reassuring. - Results/Orders Results/Orders: Laboratory Tests 07/14/18 07/14/18 06:40 07:01 WBC 5.6 RBC 3.60 L Hgb 11.7 L Hct 34.4 L MCV 95.5 H MCH 32.5 H MCHC 34.1 RDW 17.1 H Plt Count 141 MPV 9.3 Absolute Neuts (auto) 3.30 Absolute Lymphs (auto) 1.10 Absolute Monos (auto) 0.60 Absolute Eos (auto) 0.60 H Absolute Basos (auto) 0.10 Neutrophils % 58.6 Lymphocytes % 19.1 L Monocytes % 10.4 H Eosinophils % 11.0 H Basophils % 0.9 PT 11.0 H INR 1.10 PTT (SP) 91.7 H* Sodium 142 Potassium 3.6 Chloride 98 L Carbon Dioxide 28 Anion Gap 19.6 H BUN 32 H Creatinine 4.33 H BUN/Creatinine Ratio 7.4 L Random Glucose 128 H Serum Osmolality 291.7 Calcium 9.1 Magnesium 2.3 2.3 Creatine Kinase 51 CK-MB (CK-2) 0.8 CK-MB (CK-2) % Not Reportable Troponin I 0.04 B-Natriuretic Peptide > 5000.0 H* TSH 1.88 EKG shows ventricular bigeminy. Regular rate. LVH pattern. No acute ST segment or T-wave changes concerning for acute ischemia. chest x-ray shows no acute pathology. Departure - Departure Clinical Impression: Ventricular bigeminy Disposition: Discharge to Home or Self Care Condition: Fair Departure Forms: ED Discharge - Pt. Copy, Patient Portal Self Enrollment Diet: diabetic diet Activity: increase activity as tolerated Referrals: Aravind Diaz MD [Primary Care Provider] - 1-2 Weeks Prescriptions: Carvedilol [Coreg] 25 mg PO BID #60 tab Home Medications: Ambulatory Orders Lovastatin 20 mg PO BEDTIME 06/27/15 amLODIPine BESYLATE [Norvasc] 10 mg PO DAILY 06/27/15 Ticagrelor [Brilinta] 90 mg PO BID 08/01/17 Carvedilol [Coreg] 12.5 mg PO BID 08/08/17 Albuterol Inhaler [Ventolin Hfa Inhaler] 1 puff INH QID PRN 07/14/18 Amoxicillin 875 mg PO DAILY 07/14/18 Carvedilol [Coreg] 25 mg PO BID #60 tab 07/14/18 Losartan Potassium 50 mg PO DAILY 07/14/18 Sevelamer Carbonate [Renvela] 800 mg PO TID 07/14/18 Additional Instructions: the patient is a 78-year-old male presenting to the emergency room with asymptomatic bigeminy. Pattern did improve after dosing of his Coreg. His accounting office manager was contacted and recommended an increase in his Coreg to 25 mg twice daily from the 12.5 mg twice daily. He does need follow-up with his accounting office manager next week. He will need to get dialysis this afternoon or tomorrow. ER warnings were given. Laboratory work and x-ray are reassuring.
[2018-07-14 09:53] VITALS: BP 159/78; O2SAT 99
== END 2018-07-14 09:52 | disposition home or self-care (01) ==
LOC: ER 06:34
DX: R00.8 Other abnormalities of heart beat (principal); I50.9 Heart failure, unspecified; I13.2 Hypertensive heart and chronic kidney disease with heart failure and with stage 5 chronic kidney disease, or end stage renal disease; E11.22 Type 2 diabetes mellitus with diabetic chronic kidney disease; N18.6 End stage renal disease; Z99.2 Dependence on renal dialysis; Z86.73 Personal history of transient ischemic attack (TIA), and cerebral infarction without residual deficits; Z79.899 Other long term (current) drug therapy
CPT/HCPCS: 36415; 71045; 80048; 82550; 82553; 83735; 83880; 84443; 84484; 85025; 85610; 85730; 93005; 94640; 94760; J7620

== ENCOUNTER → 2018-10-26 | Outpatient (CLI) | payer MEDICARE, MEDICAID | LOC: YCFC.O 08:51 | PROVIDERS: ATTEND Family Medicine | DX: E11.65 Type 2 diabetes mellitus with hyperglycemia (principal); I10 Essential (primary) hypertension; Z13.220 Encounter for screening for lipoid disorders ==

== ENCOUNTER 2019-05-14 11:26 | Emergency (ER) | payer MEDICARE, MEDICAID ==
[2019-05-14] MEDS ORDERED: IPRATROPIUM/ALBUTEROL 3 ML VIAL NEB ONE (12:06)
--- NOTE | 2019-05-14 12:37 | RAD ---
EXAM DESCRIPTION: Chest,2 Views CLINICAL HISTORY: 78 years Male, cough, sob, known flu COMPARISON: Radiographs of the chest dated 07/14/2018. TECHNIQUE: PA and lateral radiographs of the chest were obtained. FINDINGS: Trachea is midline.The cardiomediastinal silhouette is mildly enlarged in size in size. The pulmonary vasculature is within normal limits. Low lung volumes with bibasilar atelectasis and/or pneumonia. IMPRESSION: Low lung volumes with bibasilar atelectasis and/or pneumonia. Electronically signed by: Giovanna Cevallos MD 05/14/2019 12:35 PM [facility]
[2019-05-14] MEDS ORDERED: cefTRIAXone SODIUM 1 GM VIAL IM ONE (12:47)
[2019-05-14] MEDS ORDERED: predniSONE 20 MG TAB PO ONE (12:47)
[2019-05-14] MEDS ORDERED: AMOXICILLIN & POT CLAVULANATE 875 MG TAB PO ONE (12:47)
[2019-05-14] MEDS ORDERED: OSELTAMIVIR 75 MG CAP PO ONE (12:47)
--- NOTE | 2019-05-14 13:36 | ED.PDOC ---
History of Present Illness - General Chief Complaint: Respiratory Problem Stated Complaint: cough and congestion Time Seen by Provider: 05/14/19 11:31 Source: patient Exam Limitations: no limitations - History of Present Illness Initial Comments: The patient is a 78-year-old male presented emergency room secondary to increased cough. The patient was diagnosed with influenza about 48 hours ago and was started on Tamiflu. He is a dialysis patient. He was sent over from dialysis secondary to concern for his cough and rattling respiratory sounds. He is not in respiratory distress. Oxygen saturations ranged from 89 to 97% on room air. He does have coarse breath sounds throughout but good air movement. He has not been having fevers. No chest pain or shortness of breath. No syncope or near syncope. He received dialysis this morning. No history of any chronic lung disease. No recurrent pneumonias. Timing/Duration: other - 2 days Severity: moderate Improving Factors: nothing Worsening Factors: nothing Associated Symptoms: cough, shortness of breath - Mild Allergies/Adverse Reactions: Allergies NO KNOWN ALLERGY Allergy (Verified 05/14/19 12:11) pt states Home Medications: Ambulatory Orders Lovastatin 20 mg PO BEDTIME 06/27/15 amLODIPine BESYLATE [Norvasc] 10 mg PO DAILY 06/27/15 Ticagrelor [Brilinta] 90 mg PO BID 08/01/17 Carvedilol [Coreg] 12.5 mg PO BID 08/08/17 Albuterol Inhaler [Ventolin Hfa Inhaler] 1 puff INH QID PRN 07/14/18 Amoxicillin 875 mg PO DAILY 07/14/18 Carvedilol [Coreg] 25 mg PO BID #60 tab 07/14/18 Losartan Potassium 50 mg PO DAILY 07/14/18 Sevelamer Carbonate [Renvela] 800 mg PO TID 07/14/18 Review of Systems - Review of Systems Constitutional: States: malaise EENTM: States: nose congestion, throat pain - Now resolved Respiratory: States: cough, short of breath - Mild Cardiology: States: no symptoms reported Gastrointestinal/Abdominal: States: no symptoms reported Genitourinary: States: no symptoms reported Musculoskeletal: States: no symptoms reported Skin: States: no symptoms reported Neurological: States: no symptoms reported Endocrine: States: no symptoms reported All other Systems: No Change from Baseline Past Medical History (General) - Patient Medical History Hx Seizures: No Hx Stroke: Yes - Hx TIA Hx Dementia: No Hx Asthma: No Hx of COPD: No Hx Cardiac Disorders: No Hx Congestive Heart Failure: Yes Hx Pacemaker: No Hx Hypertension: Yes Hx Thyroid Disease: No Hx Diabetes: Yes Hx Gastroesophageal Reflux: No Hx Renal Disease: Yes - Dialysis patient - L AV fistula to L arm; Fluid restriction Hx Cancer: No Hx of HIV: No Hx Hepatitis C: No Hx MRSA: No Surgical History: no surgical history - Vaccination History Hx Tetanus, Diphtheria Vaccination: No Hx Influenza Vaccination: Yes Hx Pneumococcal Vaccination: Yes - Social History Hx Tobacco Use: No Hx Alcohol Use: No Hx Physical Abuse: No Hx Emotional Abuse: No Family Medical History - Family History Mother Family History: Unknown Living Status: Physical Exam - Physical Exam General Appearance: Agitated, Alert, Comfortable, No apparent distress Eye Exam: bilateral normal Ears, Nose, Throat: hearing grossly normal, nasal congestion Neck: full range of motion, supple Respiratory: no respiratory distress, no accessory muscle use, rhonchi - Coarse Cardiovascular/Chest: normal peripheral pulses, no edema, other - Regular rate Peripheral Pulses: radial,right: 2+, radial,left: 2+ Gastrointestinal/Abdominal: non tender, soft Rectal Exam: deferred Extremity: normal range of motion, non-tender, no pedal edema, normal capillary refill Neurologic: managed services consultant II-XII nml as tested, alert, normal mood/affect, oriented x 3 Skin Exam: normal color Comments: Vital Signs - 24 hr 05/14/19 05/14/19 05/14/19 12:08 12:12 12:43 Temperature 98.3 F Pulse Rate 81 Pulse Rate [ 81 monitor] Respiratory 22 22 20 Rate Blood Pressure 125/64 [la] O2 Sat by Pulse 88 L 99 Oximetry Progress - Progress Progress: 05/14/19 13:37 The patient is a 78-year-old male presents emergency room secondary to what appears to be a mild pneumonia and bronchitis. Influenza is the most likely source here as he has tested positive for it and has already been started on Tamiflu. The patient will be covered for any secondary infection with Augmentin. He is afebrile and in no distress. His oxygen saturations are borderline ranging from 88 to 97% on room air. For the most part he stays from 90 to 93% on room air. Breathing treatment here did not seem to help a whole lot. He was given a small dose of prednisone, a dose of Tamiflu and a dose of Augmentin while here. I do want the patient followed closely in case he starts to worsen rather than improve. If family can obtain a pulse oximeter, then periodic short-term monitoring with pulse oximetry at home may indicate a drop in his oxygen saturations that would dictate an admission for further care. If they cannot obtain one, then he should follow-up at clinic tomorrow for a brief checkup to make sure he is still doing adequately well. ER warnings are given for any significant worsening. Questions were answered. [email or web address] [phone] - Results/Orders Results/Orders: Chest x-ray shows bilateral lower lobe atelectasis versus infiltrate. - EKG/XRAY/CT CT Ordered: No Departure - Departure Clinical Impression: Viral pneumonia Disposition: Discharge to Home or Self Care Condition: Fair Departure Forms: ED Discharge - Pt. Copy, Patient Portal Self Enrollment Instructions: DI for Pneumonia -- Adult Diet: diabetic diet Activity: increase activity as tolerated Referrals: Aravind Diaz MD [Primary Care Provider] - 1-2 Days Home Medications: Ambulatory Orders Lovastatin 20 mg PO BEDTIME 06/27/15 amLODIPine BESYLATE [Norvasc] 10 mg PO DAILY 06/27/15 Ticagrelor [Brilinta] 90 mg PO BID 08/01/17 Carvedilol [Coreg] 12.5 mg PO BID 08/08/17 Albuterol Inhaler [Ventolin Hfa Inhaler] 1 puff INH QID PRN 07/14/18 Amoxicillin 875 mg PO DAILY 07/14/18 Carvedilol [Coreg] 25 mg PO BID #60 tab 07/14/18 Losartan Potassium 50 mg PO DAILY 07/14/18 Sevelamer Carbonate [Renvela] 800 mg PO TID 07/14/18 Additional Instructions: The patient is a 78-year-old male presents emergency room secondary to what appears to be a mild pneumonia and bronchitis. Influenza is the most likely source here as he has tested positive for it and has already been started on Tamiflu. The patient will be covered for any secondary infection with Augmentin. He is afebrile and in no distress. His oxygen saturations are borderline ranging from 88 to 97% on room air. For the most part he stays from 90 to 93% on room air. Breathing treatment here did not seem to help a whole lot. He was given a small dose of prednisone, a dose of Tamiflu and a dose of Augmentin while here. I do want the patient followed closely in case he starts to worsen rather than improve. If family can obtain a pulse oximeter, then periodic short-term monitoring with pulse oximetry at home may indicate a drop in his oxygen saturations that would dictate an admission for further care. If they cannot obtain one, then he should follow-up at clinic tomorrow for a brief checkup to make sure he is still doing adequately well. ER warnings are given for any significant worsening. Questions were answered.
[2019-05-14 14:37] VITALS: BP 125/64; TEMP 99.1; O2SAT 92
== END 2019-05-14 14:00 | disposition home or self-care (01) ==
LOC: ER 11:26
DX: J12.9 Viral pneumonia, unspecified (principal); N18.6 End stage renal disease; I50.9 Heart failure, unspecified; E11.22 Type 2 diabetes mellitus with diabetic chronic kidney disease; I13.2 Hypertensive heart and chronic kidney disease with heart failure and with stage 5 chronic kidney disease, or end stage renal disease; Z99.2 Dependence on renal dialysis; Z86.73 Personal history of transient ischemic attack (TIA), and cerebral infarction without residual deficits; Z79.899 Other long term (current) drug therapy
CPT/HCPCS: 71046; 93005; 94640; J7620

== ENCOUNTER → 2019-09-08 | Outpatient (CLI) | payer MEDICARE, MEDICAID | LOC: YCFC.O 07:44 | PROVIDERS: ATTEND Family Medicine | DX: E78.2 Mixed hyperlipidemia (principal); I50.9 Heart failure, unspecified; E11.22 Type 2 diabetes mellitus with diabetic chronic kidney disease; N19 Unspecified kidney failure | CPT/HCPCS: 36415; 80053; 80061; 83036; 84443; 85025; G0103 ==

== ENCOUNTER → 2019-11-30 | Outpatient (CLI) | payer MEDICARE, MEDICAID ==
--- NOTE | 2019-12-04 08:54 | RAD ---
EXAM DESCRIPTION: Chest,2 Views CLINICAL HISTORY: LUNG FIELD ABNORMAL COMPARISON: Previous chest x-ray May 14, 2019 TECHNIQUE: PA/lateral FINDINGS: Previous study showed bibasilar partial volume loss or infiltrate. No infiltrate on the present study. Heart is large with normal pulmonary vascularity. Right diaphragmatic eventration. Left hemidiaphragm is slightly elevated. Discoid atelectasis in left lung base. No pleural effusion or pneumothorax. Lungs are clear with no consolidation. Lateral view shows intact sternum and osteopenic T-spine with pseudospondylitic form of DISH. Patchy discoid atelectasis in the retrocardiac region and there may be a small hiatal hernia as well. IMPRESSION: Retrocardiac discoid atelectasis. Electronically signed by: Tylor Bonds MD 12/04/2019 8:52 AM CDT
== END ==
LOC: YCFC.O 15:33
PROVIDERS: ATTEND Nurse Practitioner
DX: R91.8 Other nonspecific abnormal finding of lung field (principal); J98.11 Atelectasis

== ENCOUNTER → 2019-12-10 | Outpatient (CLI) | payer MEDICARE, MEDICAID | LOC: YCFC.O 15:37 | PROVIDERS: ATTEND Nurse Practitioner Family | DX: Z03.818 Encounter for observation for suspected exposure to other biological agents ruled out (principal); Z03.89 Encounter for observation for other suspected diseases and conditions ruled out; R06.00 Dyspnea, unspecified ==

== ENCOUNTER 2020-02-25 17:26 | Outpatient (CLI) | payer MEDICARE, MEDICAID ==
--- NOTE | 2020-02-25 16:00 | RAD ---
EXAM DESCRIPTION: Chest,2 Views CLINICAL HISTORY: 79 years Male, COUGH COMPARISON: November 30, 2019 Findings: Two view(s)/radiograph(s) Cardiac silhouette and pulmonary vasculature are within normal limits. No pneumothorax. No pleural effusion. The lungs are hyperexpanded. Patchy multifocal bilateral airspace disease. Osteopenia. Atherosclerotic disease. No acute osseous abnormality. IMPRESSION: Patchy multifocal bilateral airspace disease; pulmonary edema or pneumonia. Electronically signed by: Jose Grey MD 02/25/2020 3:58 PM [facility]
== END 2020-02-26 15:21 | disposition home or self-care (01) ==
LOC: INFRM 17:26
PROVIDERS: ATTEND Nurse Practitioner
DX: U07.1 COVID-19 (principal); I50.9 Heart failure, unspecified; R06.00 Dyspnea, unspecified; Z23 Encounter for immunization
CPT/HCPCS: 71046; 83880; 85025; 87635; M0239

== ENCOUNTER 2020-02-28 17:47 | Emergency (ER) | payer MEDICARE, MEDICAID ==
[2020-02-28] MEDS ORDERED: SODIUM CHLORIDE 0.9% (FLUSH) 10 ML SYG IV PRN (18:07)
--- NOTE | 2020-02-28 18:12 | ED.PDOC ---
History of Present Illness - General Time Seen by Provider: 02/28/20 18:02 Source: patient, RN notes reviewed, Vital Signs reviewed, family Exam Limitations: no limitations - History of Present Illness Comments: Patient is a 79-year-old male with past medical history of end-stage renal disease on dialysis Tuesday, and Tuesday, essential hypertension who presents to the ED with cough and shortness of breath that has been going on for 1 week. Family states he tested positive for COVID-19 on Tuesday. He felt a little worse the following day and his PCP called him prescriptions for azithromycin and Augmentin which the family picked up today but he has not started taking. He went to his full dialysis today and dialysis nurse suggested he come to ED for evaluation. Family denies any recent fever. Patient denies any chest pain, nausea, vomiting or headache. Allergies/Adverse Reactions: Allergies NO KNOWN ALLERGY Allergy (Verified 02/28/20 18:19) pt states Home Medications: Ambulatory Orders Lovastatin 20 mg PO BEDTIME 06/27/15 amLODIPine BESYLATE [Norvasc] 10 mg PO DAILY 06/27/15 Ticagrelor [Brilinta] 90 mg PO BID 08/01/17 Carvedilol [Coreg] 12.5 mg PO BID 08/08/17 Albuterol Inhaler [Ventolin Hfa Inhaler] 1 puff INH QID PRN 07/14/18 Amoxicillin 875 mg PO DAILY 07/14/18 Carvedilol [Coreg] 25 mg PO BID #60 tab 07/14/18 Losartan Potassium 50 mg PO DAILY 07/14/18 Sevelamer Carbonate [Renvela] 800 mg PO TID 07/14/18 Review of Systems - Review of Systems Constitutional: Denies: chills, fever EENTM: Denies: nose congestion, throat pain Respiratory: States: cough, short of breath Cardiology: Denies: chest pain, palpitations, syncope Gastrointestinal/Abdominal: Denies: abdominal pain, nausea, vomiting Musculoskeletal: Denies: back pain, neck pain Skin: Denies: rash Neurological: Denies: headache All other Systems: Reviewed and Negative Past Medical History (General) - Patient Medical History Hx Seizures: No Hx Stroke: Yes - Hx TIA Hx Dementia: No Hx Asthma: No Hx of COPD: No Hx Cardiac Disorders: No Hx Congestive Heart Failure: Yes Hx Pacemaker: No Hx Hypertension: Yes Hx Thyroid Disease: No Hx Diabetes: Yes Hx Gastroesophageal Reflux: No Hx Renal Disease: Yes - Dialysis patient - L AV fistula to L arm; Fluid restriction Hx Cancer: No Hx of HIV: No Hx Hepatitis C: No Hx MRSA: No - Vaccination History Hx Tetanus, Diphtheria Vaccination: No Hx Influenza Vaccination: Yes Hx Pneumococcal Vaccination: Yes - Social History Hx Tobacco Use: No Hx Alcohol Use: No Hx Physical Abuse: No Hx Emotional Abuse: No Family Medical History - Family History Mother Family History: Unknown Living Status: Physical Exam - Physical Exam General Appearance: Alert, Comfortable, Frail, No apparent distress, Other - Pt resting comfortably. No distress Neck: full range of motion, supple Respiratory: chest non-tender, lungs clear, normal breath sounds, no respiratory distress, no accessory muscle use Cardiovascular/Chest: regular rate, rhythm, no edema Gastrointestinal/Abdominal: non tender, soft, no pulsatile mass Extremity: normal range of motion, non-tender, no pedal edema Neurologic: alert, normal mood/affect Comments: dialysis graft in left forearm Progress - Progress Progress: 02/28/20 18:13 Has history of end-stage renal disease and hypertension. Has had cough and shortness of breath for 1 week and tested positive for Covid 4 days ago. His PCP has prescribed Augmentin and azithromycin which they have picked up but he has not started taking. He received his full dialysis today. Denies fever. Patient is satting 93% on room air and is in no respiratory distress. Will get chest x-ray and labs to further evaluate. 02/28/20 19:35 Pt is now satting 86-89% on RA and requiring supplemental oxygen. Daughter states he received Monoclonal Antibody infusion on Tuesday after he was diagnosed with COVID. 02/28/20 19:41 D/W Susi Franks hospitalist, unable to admit here due to pt being on dialysis. Will start transfer process. 02/28/20 20:36 D/W Dr. Frye at [facility]. Accepts pt in transfer. Greatly appreciate his assistance. - Results/Orders Results/Orders: CHEST XRAY EXAM: Chest,1 View CLINICAL INDICATION: Shortness of breath COMPARISON: 02/25/2020 FINDINGS: A single view of the chest was obtained. The heart size is mildly enlarged. The pulmonary vascularity is unremarkable. Mild infiltrates are seen in the right lung base. The lungs are otherwise clear. There is no pneumothorax. IMPRESSION: Mild infiltrates in the right lung base, suspicious for pneumonia. Cardiomegaly. EKG- Sinus rhythm, rate 89, occasional PVC, nml intervals, nonspecific ST abnormality COVID positive on 02/25/2020 Laboratory Results - last 24 hr 02/28/20 02/28/20 02/28/20 18:21 18:21 18:21 WBC 5.5 RBC 3.36 L Hgb 10.9 L Hct 31.2 L MCV 92.7 MCH 32.5 H MCHC 35.0 RDW 16.2 H Plt Count 184 MPV 8.3 Absolute Neuts (auto) 4.80 Absolute Lymphs (auto) 0.20 L Absolute Monos (auto) 0.40 Absolute Eos (auto) 0.00 Absolute Basos (auto) 0.00 Neutrophils % 87.8 H Lymphocytes % 4.5 L Monocytes % 7.2 Eosinophils % 0.1 L Basophils % 0.4 PT 11.3 H INR 1.14 PTT (SP) 39.6 H Sodium 139 Potassium 3.3 L Chloride 87 L Carbon Dioxide 31 Anion Gap 24.3 H BUN 29 H Creatinine 4.60 H BUN/Creatinine Ratio 6.3 L Random Glucose 129 H Serum Osmolality 285.1 Lactic Acid Calcium 9.1 Total Bilirubin 1.5 H AST 35 ALT 16 Alkaline Phosphatase 90 Serum Total Protein 8.3 H Albumin 3.6 Globulin 4.7 H Albumin/Globulin Ratio 0.8 L 02/28/20 18:21 WBC RBC Hgb Hct MCV MCH MCHC RDW Plt Count MPV Absolute Neuts (auto) Absolute Lymphs (auto) Absolute Monos (auto) Absolute Eos (auto) Absolute Basos (auto) Neutrophils % Lymphocytes % Monocytes % Eosinophils % Basophils % PT INR PTT (SP) Sodium Potassium Chloride Carbon Dioxide Anion Gap BUN Creatinine BUN/Creatinine Ratio Random Glucose Serum Osmolality Lactic Acid 1.7 Calcium Total Bilirubin AST ALT Alkaline Phosphatase Serum Total Protein Albumin Globulin Albumin/Globulin Ratio Departure - Departure Clinical Impression: COVID-19, Hypoxia, Right lower lobe pneumonia, ESRD (end stage renal disease) o n dialysis Disposition: Discharge to Home or Self Care Referrals: Aravind Diaz MD [Primary Care Provider] - 1-2 Weeks Home Medications: Ambulatory Orders Lovastatin 20 mg PO BEDTIME 06/27/15 amLODIPine BESYLATE [Norvasc] 10 mg PO DAILY 06/27/15 Ticagrelor [Brilinta] 90 mg PO BID 08/01/17 Carvedilol [Coreg] 12.5 mg PO BID 08/08/17 Albuterol Inhaler [Ventolin Hfa Inhaler] 1 puff INH QID PRN 07/14/18 Amoxicillin 875 mg PO DAILY 07/14/18 Carvedilol [Coreg] 25 mg PO BID #60 tab 07/14/18 Losartan Potassium 50 mg PO DAILY 07/14/18 Sevelamer Carbonate [Renvela] 800 mg PO TID 07/14/18 Transfer to Outside Facility - Transfer Information Decision to Transfer Date: 02/28/20 Decision to Transfer Time: 19:47 Reason for Transfer: Need nephrology, dialysis Accepting Provider:: Dr Frye Accepting Facility: [facility]
[2020-02-28] MEDS ORDERED: DEXAMETHASONE INJ 4 MG/ML VIAL IV ONE (18:15)
--- NOTE | 2020-02-28 18:36 | RAD ---
EXAM: Chest,1 View CLINICAL INDICATION: Shortness of breath COMPARISON: 02/25/2020 FINDINGS: A single view of the chest was obtained. The heart size is mildly enlarged. The pulmonary vascularity is unremarkable. Mild infiltrates are seen in the right lung base. The lungs are otherwise clear. There is no pneumothorax. IMPRESSION: Mild infiltrates in the right lung base, suspicious for pneumonia. Cardiomegaly. Electronically signed by: Melvin Mccoy MD 02/28/2020 6:34 PM [employer]US[facility]ER
[2020-02-28] MEDS ORDERED: cefTRIAXone SODIUM 1 GM in SODIUM CHL 0.9% 50ML MIN-BAG+ 50 ML IVPB ONE (18:47)
[2020-02-28] MEDS ORDERED: ACETAMINOPHEN 500 MG TAB PO ONE (19:07)
[2020-02-28 20:13] VITALS: O2SAT 93
[2020-02-28 21:00] VITALS: BP 121/64; TEMP 98.3
== END 2020-02-28 21:43 | disposition home or self-care (01) ==
LOC: ER 17:47
DX: U07.1 COVID-19 (principal); J12.89 Other viral pneumonia; R09.02 Hypoxemia; N18.6 End stage renal disease; I49.3 Ventricular premature depolarization; E11.22 Type 2 diabetes mellitus with diabetic chronic kidney disease; I50.9 Heart failure, unspecified; I13.2 Hypertensive heart and chronic kidney disease with heart failure and with stage 5 chronic kidney disease, or end stage renal disease; Z99.2 Dependence on renal dialysis; Z86.73 Personal history of transient ischemic attack (TIA), and cerebral infarction without residual deficits; Z79.899 Other long term (current) drug therapy
CPT/HCPCS: 36415; 71045; 80053; 83605; 85025; 85610; 85730; 87040; 93005; A4216; J0696; J1100; J7050

== ENCOUNTER → 2020-03-18 | Outpatient (CLI) | payer MEDICARE, MEDICAID | LOC: YCFC.O 15:52 | PROVIDERS: ATTEND Family Medicine | DX: D64.9 Anemia, unspecified (principal); E78.2 Mixed hyperlipidemia; N18.6 End stage renal disease; E13.3 Other specified diabetes mellitus with ophthalmic complications ==

== ENCOUNTER 2020-03-19 14:17 | Outpatient (CLI) | payer MEDICARE, MEDICAID ==
[2020-03-20] MEDS: SODIUM CHLORIDE 0.9% 250ML 250 ML IVS PRN (09:18)
[2020-03-20 13:59] VITALS: O2SAT 97
[2020-03-20 15:28] VITALS: BP 135/71; TEMP 97.8
== END 2020-03-20 18:00 | disposition home or self-care (01) ==
LOC: YCFC.O 14:17
PROVIDERS: ATTEND Family Medicine
DX: K92.2 Gastrointestinal hemorrhage, unspecified (principal)

== ENCOUNTER → 2020-03-27 | Outpatient (CLI) | payer MEDICARE, MEDICAID | LOC: YCFC.O 12:31 | PROVIDERS: ATTEND Family Medicine | DX: K92.2 Gastrointestinal hemorrhage, unspecified (principal) ==